=== PATIENT | female | born 1990 | race Caucasian/White ===

== ENCOUNTER → 2021-02-01 08:52 | Outpatient (BNVA) | payer OTHER, SELFPAY | PROVIDERS: Visit Provider Surgery Vascular Surgery ==

== ENCOUNTER 2021-02-15 07:52 | Outpatient (REF) | payer OTHER, SELFPAY ==
--- NOTE | ~2021-02-15 | US_ITS ---
EXAMINATION: US LOWER EXTREMITY VENOUS ULTRASOUND (REFLUX EXAM), BILATERAL CLINICAL INDICATION: Bilateral lower extremity varicose veins. COMPARISON: None. TECHNIQUE: Color-flow triplex imaging and compression Doppler was performed to evaluate both the deep and the superficial systems bilaterally. To evaluate the superficial system, the examination was performed in the upright position. Color-flow Doppler ultrasound and compression ultrasound were utilized. In addition, maneuvers were utilized to demonstrate reflux. FINDINGS: 1. DEEP VENOUS ULTRASOUND OF THE RIGHT LOWER EXTREMITY: Common Femoral Vein: Compressible, normal respiratory variation and augmented flow. Femoral Vein: Compressible, normal color-flow and augmentation. Popliteal Vein: Compressible, normal augmentation. Deep Reflux: There is greater than 1.2 seconds of reflux within the right common femoral vein. There is no evidence of a Garcia's cyst. 2. SUPERFICIAL ULTRASOUND WITH DOPPLER OF RIGHT LOWER EXTREMITY: GREAT SAPHENOUS VEIN: Saphenofemoral junction: 1.1 cm; Reflux: 1.2 seconds. Proximal thigh: 0.6 cm; Reflux: 1.5 seconds. Mid thigh: 0.5 cm; Reflux: No evidence of reflux. Above knee: 0.5 cm; Reflux: No evidence of reflux. At knee: 0.4 cm; Reflux: No evidence of reflux. Below knee: 0.3 cm; Reflux: No evidence of reflux. Mid calf: 0.3 cm; Reflux: No evidence of reflux. Ankle: 0.3 cm; Reflux: No evidence of reflux. DUPLICATED GREAT SAPHENOUS VEIN: Medial: 0.6 cm at the junction, no reflux. SMALL SAPHENOUS VEIN: Saphenopopliteal junction: 0.3 cm; No evidence of reflux. Mid calf: 0.3 cm; No evidence of reflux. Distal calf: 0.2 cm; No evidence of reflux. VEIN OF GIACOMINI: None Imaged. PERFORATORS: None Imaged. VARICOSITIES: Proximal thigh: 0.5 cm, no reflux. Mid thigh: 0.8 cm, greater than 3 seconds of reflux. Proximal calf: 0.4 cm, greater than 3.3 seconds of reflux. 3. DEEP VENOUS ULTRASOUND OF THE LEFT LOWER EXTREMITY: Common Femoral Vein: Compressible, normal respiratory variation and augmented flow. Femoral Vein: Compressible, normal color-flow and augmentation. Popliteal Vein: Compressible, normal augmentation. Deep Reflux: There is no evidence of reflux in the deep system in either the common femoral vein or the popliteal vein. There is no evidence of a Garcia's cyst. 4. SUPERFICIAL ULTRASOUND WITH DOPPLER OF LEFT LOWER EXTREMITY: GREAT SAPHENOUS VEIN: Saphenofemoral junction: 0.9 cm; Reflux: 1.7 seconds. Proximal thigh: 0.7 cm; Reflux: 1.3 seconds. Mid thigh: 0.9 cm; Reflux: 1.4 seconds. Above knee: 0.8 cm; Reflux: 2.0 seconds. At knee: 0.8 cm; Reflux: 2.6 seconds. Below knee: 0.5 cm; Reflux: 0.6 seconds. Mid calf: 0.2 cm; Reflux: No evidence of reflux. Ankle: 0.2 cm; Reflux: No evidence of reflux. DUPLICATED GREAT SAPHENOUS VEIN: Medial: 0.5 cm, greater than 0.8 seconds of reflux. SMALL SAPHENOUS VEIN: Saphenopopliteal junction: 0.3 cm; No evidence of reflux. Mid calf: 0.3 cm; No evidence of reflux. Distal calf: 0.3 cm; No evidence of reflux. VEIN OF GIACOMINI: None Imaged. PERFORATORS: Midcalf: 0.2 cm, no evidence of reflux. VARICOSITIES: Mid thigh: 0.5 cm, greater than 2 seconds of reflux. Distal thigh: 0.8 cm, greater than 1.3 seconds of reflux. Distal calf: 0.4 cm, greater than 1.4 seconds of reflux. Proximal calf: 0.8 cm, greater than 1.8 seconds of reflux. US/US venous duplex LE BI IMPRESSION: 1. Bilateral great saphenous venous insufficiency. 2. Left, duplicated medial great saphenous venous insufficiency beginning at the junction. 3. No evidence of small saphenous venous insufficiency. 4. Bilateral refluxing varicosities. 5. Deep venous insufficiency involving the right common femoral vein. 6. No evidence of DVT.
== END 2021-02-15 07:53 | disposition home or self-care (01) ==
LOC: HO.US 07:52
PROVIDERS: Visit Provider Surgery Vascular Surgery
DX: I83.893 Varicose veins of bilateral lower extremities with other complications (principal)
CPT/HCPCS: 93970

== ENCOUNTER → 2021-03-03 13:25 | Outpatient (BNVA) | payer OTHER, SELFPAY | PROVIDERS: Visit Provider Surgery Vascular Surgery ==

== ENCOUNTER → 2021-04-01 07:38 | Outpatient (BNVA) | payer OTHER, SELFPAY | PROVIDERS: Visit Provider Surgery Vascular Surgery | DX: I83.12 Varicose veins of left lower extremity with inflammation (principal) | CPT/HCPCS: 36475 ==

== ENCOUNTER 2021-04-04 10:24 | Outpatient (REF) | payer OTHER, SELFPAY ==
--- NOTE | ~2021-04-04 | US_ITS ---
EXAMINATION: US VENOUS ULTRASOUND WITH DOPPLER LOWER EXTREMITY, LEFT CLINICAL INFORMATION: Left leg pain. Rule out DVT. COMPARISON: 02/15/2021 TECHNIQUE: Ultrasound of the deep veins is performed from the hip to the calf with compression sonography and color and pulse Doppler assessment. Spectral analysis with color-flow imaging is performed. FINDINGS: There is normal venous compression and respiratory variation and augmented flow. The visualized common femoral vein, superficial femoral vein, profunda femoral vein, popliteal vein, and the trifurcation region shows no evidence of deep venous thrombosis. There is no significant popliteal fossa cyst. There is thrombus seen within the greater saphenous vein. This corresponds with the ablation. The greater saphenous vein is closed with occlusion extending 0.19 cm from the junction with the femoral vein. If the patient's symptoms persist, followup ultrasound in 5 days 7 days might be of value to exclude proximal propagation from a non-visualized calf vein. US/US venous duplex LE LT IMPRESSION: No DVT demonstrated in the left lower extremity. Greater saphenous vein thrombus associated with ablation, extending near to the junction of the femoral vein.
== END 2021-04-04 10:25 | disposition home or self-care (01) ==
LOC: HO.HMGCX 10:24
PROVIDERS: Visit Provider Surgery Vascular Surgery
DX: M79.605 Pain in left leg (principal)
CPT/HCPCS: 93971

== ENCOUNTER → 2021-04-12 08:57 | Outpatient (BNVA) | payer OTHER, SELFPAY | PROVIDERS: Visit Provider Surgery Vascular Surgery ==

== ENCOUNTER 2021-08-30 10:42 | Outpatient (REF) | payer OTHER, SELFPAY ==
[2021-08-30 13:24] LABS: Hematocrit 39.4 % (37.0-47.0); Hemoglobin 12.6 g/dl (12.0-16.0); Mean Corpuscular Hemoglobin 27.8 pg (27.0-33.0); Mean Platelet Volume 9.1 fL (9.4-12.3); Platelet Count 441 X10*3/uL (160-400); Red Blood Count 4.53 X10*6/uL (4.20-5.50); Red Cell Distribution Width 13.2 % (11.0-16.0)
[2021-08-30 13:53] LABS: Alanine Aminotransferase 12 U/L (0-31); Albumin Level 3.9 g/dL (3.5-5.0); Alkaline Phosphatase 75 U/L (39-117); Anion Gap 11 (12-20); Aspartate Amino Transferase 11 U/L (5-31); Bilirubin Total 0.3 mg/dL (0.0-1.0); Blood Urea Nitrogen 9 mg/dL (9-16); Calcium 9.4 mg/dL (8.4-10.2); Carbon Dioxide 26 mmol/L (22-29); Chloride 107 mmol/L (96-108); Cholesterol 232 mg/dL; Estimated Glomerular Filt Rate > 60; Glucose Fasting 104 mg/dL (60-99); HDL Cholesterol 47 mg/dL; LDL Cholesterol Calculated 140 mg/dl; Potassium 4.6 mmol/L (3.3-5.1); Sodium 139 mmol/L (135-145); Triglycerides 227 mg/dL
[2021-08-30 14:00] LABS: TSH reflex Free T4 2.76 uIU/mL (0.32-4.0)
== END 2021-08-30 10:43 | disposition home or self-care (01) ==
LOC: HO.WFDLDS 10:42
PROVIDERS: Visit Provider Hospitalist
DX: Z00.00 Encounter for general adult medical examination without abnormal findings (principal)
CPT/HCPCS: 36415; 80053; 80061; 84443; 85027

== ENCOUNTER 2022-04-11 11:15 | Outpatient (REF) | payer OTHER, SELFPAY ==
[2022-04-11 14:43] LABS: Amylase 34 U/L (28-100)
[2022-04-11 15:08] LABS: Lipase 30 U/L (8-78)
== END 2022-04-11 11:16 | disposition home or self-care (01) ==
LOC: HO.WFDLDS 11:15
PROVIDERS: Visit Provider Hospitalist
DX: R10.11 Right upper quadrant pain (principal)
CPT/HCPCS: 36415; 82150; 83690

== ENCOUNTER 2022-05-09 09:47 | Outpatient (REF) | payer OTHER, SELFPAY ==
--- NOTE | ~2022-05-09 | US_ITS ---
EXAMINATION: US ABDOMEN LIMITED CLINICAL INFORMATION: Right upper quadrant pain. COMPARISON: None TECHNIQUE: Real-time imaging of the right upper quadrant abdominal viscera. FINDINGS: PANCREAS: Visualized portions unremarkable. LIVER: Unremarkable. GALLBLADDER: Decompressed containing gallstones measuring up to 3.2 cm. No significant mural thickening or pericholecystic fluid. COMMON BILE DUCT: Normal in caliber measuring 0.4 cm in diameter. RIGHT KIDNEY: 12.2 cm. Unremarkable. FREE FLUID: None. US/US abdomen limited IMPRESSION: Cholelithiasis without evidence for acute cholecystitis.
== END 2022-05-09 09:48 | disposition home or self-care (01) ==
LOC: HO.HMGCX 09:47
PROVIDERS: PCP Hospitalist; Visit Provider Hospitalist
DX: R10.11 Right upper quadrant pain (principal)
CPT/HCPCS: 76705

== ENCOUNTER 2023-07-23 13:08 | Outpatient (AMB) | payer OTHER, SELFPAY ==
--- NOTE | 2023-07-23 13:09 | A.OFFPC_ITS ---
Vital Signs 07/23/23 13:10 Height 5 ft 6 in Weight 205 lb 6 oz BMI 33.1 BP 132/80 Blood Pressure Location Rt brachial Position Sitting Respiration 13 Pulse 88 Pulse Source Pulse Oximeter Temp 97.3 F Temp Source Temporal Artery Scan Pulse Oximetry (%) 96 Oxygen Delivery Method Room Air Intake Visit Reasons: Trans. from -Physical Exam Locate Technician Required: No Accompanied by: Self / Same As Patient Allergies No Known Allergies Allergy (Verified 07/23/23 13:41) Medication List - Last Reconciled 07/23/23 by Pb Woods CNP drospirenone-ethinyl estradiol 3-0.02 mg 1 tab PO DAILY fluvoxamine 25 mg PO BEDTIME semaglutide (Ozempic) 2 mg subcut QWEEK Tobacco use date assessed: 07/23/23 Dental Screening Dental Screen Date: 07/23/23 Did you have a dental visit in the last 12 months?: Yes Did you have a dental problem in the last 6 months where you did not have access to dental care?: No Was dental information given to patient?: Patient has dentist HPI HPI Comments History of Present Illness Details 32-year-old female presents for transfer of care Her former PCP is who has no longer with the practice. Her last office visit was on 07/27/2022. Her last physical exam was on 08/30/2021 She has history of hyperlipidemia, varicose vein of bilateral lower extremity, anxiety, and depression She is on ocp, fluvoxamine, and ozempic. She admits to taking her medications as prescribed without adverse reaction She notes that she is followed by two therapists weekly and a psychiatrist every 6-8 weeks She reports controlled anxiety and depression symptoms on current treatment regimen She notes that last summer, she was informed by a therapist that she may have ADHD. She was evaluated by a PMHNP who prescribed Adderall ER 10mg which she took for 4 days and stopped taking the medication due to palpitations, adrenaline luis, and flushed face. She notes that she struggled throughout school and found math challenging. She admits to not being able to focus/concentrate for her entire life. She states that she is impulsive due to outburst of anger, reckless spending, and poor diet choices. She notes that she has been able to control her anger She denies hyperactivity She notes that she exercises at the gym twice weekly and has generally been maintaining a healthy diet She has been going to [facility] [place] and has been taking Ozempic since February 2023. She found the medication effective and has lost 42 lb since starting the medication She is followed by [facility] SENIOR OFFIC[facility] Medical History (Updated 07/23/23 @ 14:10 by Pb Woods CNP) No pertinent past medical history Surgical History Status post endovenous radiofrequency ablation (RFA) of saphenous vein (04/01/21) Family History Mother No problems noted. Other Mental health disorder Social History Housing: Apartment Alcohol intake: never Patient Tobacco Use Status: Never used Tobacco e-Cigarette/Vaping Use: Never Used Second Hand Smoke Exposure: No service: No Current occupational status: employed Current occupation: Therapist Current occupational exposures/hazards: No Cognitive needs: No Hearing needs: No Vision needs: Yes (glasses) Questionnaire PHQ-9 Over the last 2 weeks, how often have you been bothered by any of the following problems? 1. Little interest or pleasure in doing things: several days 2. Feeling down, depressed, or hopeless: several days 3. Trouble falling or staying asleep, or sleeping too much: nearly every day 4. Feeling tired or having little energy: more than half the days 5. Poor appetite or overeating: several days 6. Feeling bad about yourself - or that you are a failure or have let yourself or your family down: not at all 7. Trouble concentrating on things, such as reading the newspaper or watching television: nearly every day 8. Moving or speaking so slowly that other people could have noticed. Or the opposite - being so fidgety or restless that you have been moving around a lot more than usual: not at all 9. Thoughts that you would be better off or of hurting yourself in some way: not at all Total score: 11 Depression Screening Interpretation: Positive Depression Screening Follow-up: Existing condition and In treatment Depression Screening Done: Yes 09388 - PHQ-9 Billing: Yes Source: Developed by Drs. Leonel Miranda, Leah Mcneil, Andrea Stephen and colleagues, with an educational eileen from [employer]. Thrive Questionnaire Date Thrive assessed: 07/23/23 I am a: Patient What is your living situation today?: I have a steady place to live Within the past 12 months, did the food you bought not last and you didn't have the money to get more?: Never true Within the past 12 months, did you worry whether your food would run out before you got money to buy more?: Never true Do you have trouble paying for medicines?: No Do you have trouble getting transportation to medical appointments?: No Do you have trouble paying your heating and electricity bill?: No Do you have trouble taking care of your child, family member or friend?: No Do you have trouble with day-to-day activities such as bathing, preparing meals, shopping, managing finances, etc.?: No Are you currently unemployed and looking for a job?: No Are you interested in more education?: No Please select the resources that you would like help with: None Currently or been in a relationship where the following occur: no concerns reported THRIVE Score: 0 AUDIT C Alcohol Use Questionnaire (AUDIT-C) 1. How often do you have a drink containing alcohol?: Never 3. How often do you have six or more drinks on one occasion?: Never Total Score: 0 BILLIE-7 AMB Questionnaire BILLIE-7 Date BILLIE - 7 assessed: 07/23/23 Feeling nervous, anxious, or on edge: 1 = Several days Not being able to stop or control worryin = Not at all Worrying too much about different things: 0 = Not at all Trouble relaxin = Not at all Being so restless that it is hard to sit still: 2 = More than half the days Becoming easily annoyed or irritable: 1 = Several days Feeling afraid as if something awful might happen: 0 = Not at all Total BILLIE-7 score (0-4 normal; 5-9 mild; 10-14 moderate; 15-21 severe): 4 Source: Developed by Drs. Leonel Miranda, Leah Mcneil, Andrea uribe nd colleagues, with an educational eileen from [employer]. BILLIE-7 Assessment Billing BILLIE-7 Assessment Tool: BILLIE-7 Assessment 50362 Review of Systems Const Details: Const Denies chills, Denies fatigue, Denies fever(s), Denies headache(s) and Denies weakness ENT Denies dizziness and Denies headache(s) Card Denies chest pain, Denies lightheadedness, Denies dyspnea and Denies other (Palpitations) Resp Denies cough, Denies dyspnea, Denies wheezing and Denies other ( shortness of breath) GI Denies abdominal pain, Denies melena, Denies hematochezia, Denies change in bowel habits, Denies dyspepsia and Denies nausea Denies hematuria and Denies dysuria Musc Denies abnormal gait, Denies myalgias, Denies arthralgias, Denies numbness and Denies tingling Skin/Breast Denies rash, Denies unusual bruising and Denies wounds Neuro Denies abnormal gait, Denies dizziness, Denies headache(s), Denies memory loss, Denies numbness, Denies Sensory deficit (Neuro), Denies tingling and Denies weakness Psych Denies anxiety, Denies depression, Denies memory loss Endo Denies cold intolerance, Denies fatigue, Denies heat intolerance, Denies polydipsia and Denies polyuria Aller/Immun Denies wheezing Physical exam (Primary Care) Tobacco/Smoking Status: Tobacco use Status Tobacco use date assessed 08/30/21 07/27/22 09:47 Patient Tobacco Use Status Never used Tobacco 07/27/22 09:47 e-Cigarette/Vaping Use Never Used 07/27/22 09:47 Depression Screening Interpretation: Positive Depression Screening Follow-up: Existing condition and In treatment Thrive Assessment: Date of Thrive Assessment Date Thrive assessed 08/30/21 07/27/22 09:47 Currently or been in a relationship where the following occur: no concerns reported Const Other: General: no acute distress and well developed Nutritional Appearance: well nourished Orientation/consciousness: patient oriented x3 HENMT Head: Yes normocephalic and Yes atraumatic Eyes General: appearance normal, both eyes and all related structures Pupils: Equal, round and reactive pupils present EOM: EOMs intact bilaterally Resp Effort & Inspection: normal respiratory effort Auscultation: clear to auscultation bilaterally Cardio Rate: regular rate Rhythm: regular rhythm Heart sounds: S1 normal heart sound present, S2 normal heart sound present, no gallops, no murmurs and no rubs GI Palpation (GI): No Abdominal aortic bruit present, Soft to palpation, nontender, No hepatosplenomegaly present and No Rebound tenderness present Auscultation: normal bowel sounds General: Yes no CVA tenderness Back/Spine/Pelvis Back: no CVA tenderness Cervical Spine: cervical ROM normal and No Cervical spine tenderness Thoracic/Lumbar Spine: thoraco-lumbar ROM normal, No pain with thoraco-lumbar ROM, No thoracic spinal tenderness and No lumbar spinal tenderness Extrem General: Yes normal to inspection, No edema and No calf tenderness Skin General: warm and dry. Normal skin color. Normal skin turgor Neuro General: patient oriented x3, gait normal and no focal neuro deficit Cranial nerves: Yes Equal, round and reactive pupils present Cognition (Neuro): normal cognition Gait exam (Neuro): Normal gait present Sensory Exam: No Sensory deficit (Neuro) Psych Appearance: grossly normal Affect: normal affect Attitude: cooperative Thought process: Normal thought process present Assessment and Plan Assessment & Plan (1) Anxiety and depression: Code(s): F41.9 - Anxiety disorder, unspecified; F32.A - Depression, unspecified Plan: PHQ-9 and BILLIE-7 scores revealed moderate depression and mild anxiety respectively Continue current treatment regimen Routine exercise encouraged Follow-up with therapists and psychiatrist as planned Return in 1 month for an extended physical exam and review of recent labs Return sooner with symptoms or concerns Verbalized understanding and agreed with treatment plan (2) Obesity (BMI 30-39.9): Code(s): E66.9 - Obesity, unspecified Plan: She is on Ozempic 2 mg every week She has lost 42 lb since she started taking the medication 5 months ago Continue current treatment regimen Healthy diet and routine exercise encouraged Follow-up with symptoms or concerns Verbalized understanding and agreed with treatment plan (3) Laboratory tests ordered as part of a complete physical exam (CPE): Code(s): Z00.00 - Encounter for general adult medical examination without abnormal findings Plan: Fasting labs ordered in preparation of a complete physical exam. Advised to fast for at least 10 hours before getting labs drawn. May drink water Verbalized understanding and agreed with treatment plan. Orders: Orders TSH reflex Free T4 Today Z00.00 - Encounter for general adult medical examination without abnormal findings UA CC w/rflx Micro + Cult Today Z00.00 - Encounter for general adult medical examination without abnormal findings Complete Blood Count Auto Diff Today Z00.00 - Encounter for general adult medical examination without abnormal findings Comprehensive [place]. Panel Fast Today Z00.00 - Encounter for general adult medical examination without abnormal findings Lipid Panel Today Z00.00 - Encounter for general adult medical examination wit hout abnormal findings Coding Level of Care Code Est Pt Level 4 (06710) Diagnoses Anxiety and depression F41.9; F32.A Obesity (BMI 30-39.9) E66.9 Laboratory tests ordered as part of a complete physical exam (CPE) Z00.00 Additional Codes BILLIE-7 Assessment Billing - BILLIE-7 Assessment Tool: BILLIE-7 Assessment [id number] ([id number])
[2023-07-23 13:10] VITALS: BP 132/80; PULSE 88; RESP 13; TEMP 36.3; O2SAT 96; BMI 33.1
== END 2023-07-23 14:06 | disposition home or self-care (01) ==
PROVIDERS: Visit Provider Nurse Practitioner Family
DX: F41.9 Anxiety disorder, unspecified (principal); F32.A Depression, unspecified; E66.9 Obesity, unspecified; Z68.33 Body mass index [BMI] 33.0-33.9, adult
CPT/HCPCS: 99214

== ENCOUNTER 2024-09-15 08:01 | Outpatient (AMB) | payer OTHER, SELFPAY ==
--- NOTE | 2024-09-15 08:03 | A.OFFPC_ITS ---
Vital Signs 09/15/24 08:10 Height 5 ft 6 in Weight 203 lb 8 oz BMI 32.8 BP 123/69 Blood Pressure Location Rt brachial Position Sitting Respiration 16 Pulse 91 Pulse Source Pulse Oximeter Temp 97.7 F Temp Source Oral Pulse Oximetry (%) 98 Oxygen Delivery Method Room Air Intake Visit Reasons: ANNUAL PE Intake Note: patient here for CPE Flight Nurse Required: No Is last menstrual period known: No (nuva ring) Post menopausal: No Patient : No Allergies No Known Allergies Allergy (Verified 09/15/24 08:13) Medication List - Last Reconciled 09/15/24 by Pb Woods CNP dextroamphetamine-amphetamine 10 mg ER (Adderall XR) 10 mg PO DAILY drospirenone-ethinyl estradiol 3-0.02 mg 1 tab PO DAILY duloxetine (Cymbalta) 60 mg PO DAILY tirzepatide 10 mg subcut QWEEK Tobacco use date assessed: 09/15/24 Dental Screening Dental Screen Date: 09/15/24 Did you have a dental visit in the last 12 months?: Yes Did you have a dental problem in the last 6 months where you did not have access to dental care?: No Was dental information given to patient?: Patient has dentist HPI HPI Comments History of Present Illness Details 33-year-old female presents for an exten ded physical exam. Acute issue(s) - Obesity: She is on tirzepatide 10 mg subQ weekly via online prescriber. It was initially prescribed by a [facility] she went to. Her weight management goal is 175 lb. - Anxiety and depression: She notes cont rolled anxiety and depressive symptoms. She is on duloxetine 60 mg daily. She is followed by psychiatry once monthly or every other month via telehealth. She is followed by a therapist weekly via telehealth - ADHD: She notes controlled ADHD symtpo ms. She is on Adderall 10 mg daily. She denies sleep disturbance, loss of appetite, and weight loss - Chronic sinus migraines since childhoo d. Occurs once monthly and last 2-3 days. She has an appointment with [facility] Next week. She will sign a relea se for her PCP to obtain ENT record. 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 Does not vape. Does not dr ink alcohol. Denies recreational drug use - Has been making healthy dietary choice s. Active but does not exercise. Generally sleep well Health maintenance - Last eye exam was 2 years ago. She has an appointment scheduled for an eye exam next month. She will sign a release for her PCP to obtain her ophthalmology record - Last dental visit was in 06/2024. She s ees her dentist every 6 months. - Last tetanus vaccine was more than 10 years ago; received Tdap vaccine today - Has not been vaccinated for the flu ; declines vaccination - Last pap smear test was with [facility] senior instrumentation engineer in 2023. Record not available Specialists [facility], [place], [place], via telehealth Therapist via telehealth [facility] Medical History (Updated 09/15/24 @ 08:35 by Pb Woods CNP) No pertinent past medical history Surgical History Status post endovenous radiofrequency ablation (RFA) of saphenous vein (04/01/21) Family History Mother No problems noted. Other Mental health disorder Social History Housing: Apartment Alcohol intake: never Patient Tobacco Use Status: Never used Tobacco e-Cigarette/Vaping Use: Never Used Second Hand Smoke Exposure: No service: No Current occupational status: employed Current occupation: Therapist Current occupational exposures/hazards: No Cognitive needs: No Hearing needs: No Vision needs: Yes (glasses) Questionnaire PHQ-9 Over the last 2 weeks, how often have you been bothered by any of the following problems? 1. Little interest or pleasure in doing things: not at all 2. Feeling down, depressed, or hopeless: not at all 3. Trouble falling or staying asleep, or sleeping too much: several days 4. Feeling tired or having little energy: several days 5. Poor appetite or overeating: several days 6. Feeling bad about yourself - or that you are a failure or have let yourself or your family down: not at all 7. Trouble concentrating on things, such as reading the newspaper or watching television: not at all 8. Moving or speaking so slowly that other people could have noticed. Or the opposite - being so fidgety or restless that you have been moving around a lot more than usual: not at all 9. Thoughts that you would be better off or of hurting yourself in some way: not at all Total score: 3 Depression Screening Interpretation: Negative Depression Screening Done: Yes 66861 - PHQ-9 Billing: Yes Source: Developed by Drs. Leonel Miranda, Leah Mcneil, Andrea Stephen and colleagues, with an educational eileen from [employer]. Thrive Questionnaire Date Thrive assessed: 09/15/24 I am a: Patient What is your living situation today?: I have a steady place to live Within the past 12 months, did the food you bought not last and you didn't have the money to get more?: Never true Within the past 12 months, did you worry whether your food would run out before you got money to buy more?: Never true Do you have trouble paying for medicines?: No Do you have trouble getting transportation to medical appointments?: No Do you have trouble paying your heating and electricity bill?: No Do you have trouble taking care of your child, family member or friend?: No Do you have trouble with day-to-day activities such as bathing, preparing meals, shopping, managing finances, etc.?: No Are you currently unemployed and looking for a job?: No Are you interested in more education?: No Please select the resources that you would like help with: None Currently or been in a relationship where the following occur: No concerns reported THRIVE Score: 0 AUDIT C Alcohol Use Questionnaire (AUDIT-C) 1. How often do you have a drink containing alcohol?: Never Total Score: 0 Score Reviewed/Action Taken: Yes BILLIE-7 AMB Questionnaire BILLIE-7 Date BILLIE - 7 assessed: 09/15/24 Feeling nervous, anxious, or on edge: 1 = Several days Not being able to stop or control worryin = Not at all Worrying too much about different things: 0 = Not at all Trouble relaxin = Not at all Being so restless that it is hard to sit still: 0 = Not at all Becoming easily annoyed or irritable: 0 = Not at all Feeling afraid as if something awful might happen: 0 = Not at all Total BILLIE-7 score (0-4 normal; 5-9 mild; 10-14 moderate; 15-21 severe): 1 Source: Developed by Drs. Leonel Miranda, Leah Mcneil, Andrea Stephen and colleagues, with an educational eileen from [employer]. BILLIE-7 Assessment Billing BILLIE-7 Assessment Tool: BILLIE-7 Assessment 45802 Review of Systems Const Details: Denies chills, Denies fatigue, Denies fever(s), Denies headache(s) and Denies weakness HEENT Denies change in vision, Denies dizziness, Denies headache(s), Denies hearing loss, Denies nasal congestion, Denies sinus pain, Denies sinus pressure and Denies sore throat Card Denies chest pain, Denies lightheadedness, Denies dyspnea and Denies other (palpitations) Resp Denies cough, Denies dyspnea and Denies wheezing GI Denies abdominal pain, Denies melena, Denies hematochezia, Denies change in bowel habits, Denies dyspepsia and Denies nausea Denies hematuria and Denies dysuria Musc Denies abnormal gait, Denies myalgias, Denies arthralgias, Denies numbness and Denies tingling Skin/Breast Denies rash, Denies unusual bruising and Denies wounds Neuro Denies abnormal gait, Denies dizziness, Denies headache(s), Denies memory loss, Denies numbness, Denies Sensory deficit (Neuro), Denies tingling and Denies weakness Psych Denies anxiety, Denies depression and Denies memory loss Endo Denies cold intolerance, Denies fatigue, Denies heat intolerance, Denies polydipsia and Denies polyuria Jamaal/Lymph Denies easy bleeding and Denies easy bruising Aller/Immun Denies wheezing Physical exam (Primary Care) Vital Signs: Last Vital Signs Temp 97.7 F 09/15/24 08:10 Pulse 91 09/15/24 08:10 Resp 16 09/15/24 08:10 BP 123/69 09/15/24 08:10 Pulse Ox 98 09/15/24 08:10 Oxygen Delivery Method Room Air 09/15/24 08:10 BMI result Body Mass Index 32.8 Tobacco/Smoking Status: Tobacco use Status Tobacco use date assessed 09/15/24 09/15/24 08:10 Patient Tobacco Use Status Never used Tobacco 09/15/24 08:06 e-Cigarette/Vaping Use Never Used 09/15/24 08:06 PHQ-9: PHQ-9 Score PHQ-9: Total score 3 09/15/24 08:10 Depression Screening Interpretation: Negative Thrive Assessment: Date of Thrive Assessment Date Thrive assessed 09/15/24 09/15/24 08:06 Currently or been in a relationship where the following occur: No concerns reported Const Other: General: no acute distress, well developed, alert and awake Nutritional Appearance: well nourished Orientation/consciousness: patient oriented x3 HENMT Head: Yes normocephalic and Yes atraumatic Ears: hearing grossly normal bilaterally and TM's normal bilaterally General nose exam: Normal external nose present and Normal nares present Mouth: Normal oral and palatal mucosa present and moist mucous membranes Teeth and gingiva: dentition normal Throat: Yes oropharynx normal Eyes Pupils: Equal, round and reactive pupils present and Pupil accommodation reflex normal EOM: EOMs intact bilaterally Neck Neck: Yes normal visual inspection, Yes no lymphadenopathy and Yes trachea midline Thyroid: Thyroid normal Carotids: no bruits Lymphatic: no lymphadenopathy noted Chest Chest palpation & inspection: normal inspection of the chest Resp Effort & Inspection: normal respiratory effort Auscultation: clear to auscultation bilaterally Cardio Rate: regular rate Rhythm: regular rhythm Heart sounds: S1 normal heart sound present, S2 normal heart sound present, no gallops, no murmurs and no rubs Bruits: no abdominal aortic bruits and no carotid bruits GI Palpation (GI): No Abdominal aortic bruit present, Soft to palpation, nontender, No hepatosplenomegaly present and No Rebound tenderness present Auscultation: normal bowel sounds General: Yes no CVA tenderness Back/Spine/Pelvis Back: no CVA tenderness Cervical Spine: cervical ROM normal and No Cervical spine tenderness Thoracic/Lumbar Spine: thoraco-lumbar ROM normal, No pain with thoraco-lumbar ROM, No thoracic spinal tenderness and No lumbar spinal tenderness Skin General: warm and dry. Normal skin color. Normal skin turgor Lesions: no lesions Rashes: no rashes Trauma: no lacerations or abrasions Wounds: no wounds Nails: normal Neuro General: patient oriented x3, gait normal and CN's II-XI intact bilaterally Cranial nerves: Yes Equal, round and reactive pupils present Cognition (Neuro): normal cognition Gait exam (Neuro): Normal gait present Motor exam (neuro): 5/5 motor strength present throughout Sensory Exam: No Sensory deficit (Neuro) Deep tendon reflexes (DTR's): Right patellar reflex intensity grade: 2+ and Left patellar reflex intensity grade: 2+ Extrem General: Yes normal to inspection, No edema and No calf tenderness Psych Appearance: grossly normal Affect: normal affect Attitude: cooperative Thought process: Normal thought process present Immunizations Boostrix Tdap 2.5 Lf unit-8 mcg-5 Lf/0.5 mL intramuscular syringe Performing Provider: Pb Woods CNP Performing Location: [facility] [place] [facility] Administered by: Cruzito Sharma RN on 09/15/24 08:40 Dose Route Admin Location Dispensed Lot Number Expiration Date FORMERLY NAMED [facility] Medicare Sales Executive 0.5 mL IM Left Deltoid 0.5 mL [id number] 06/13/26 15366-696-90 [employer] VIS Given Date VIS Provided VIS Publication Date 09/15/24 Single Vaccine 21 Eligibility Eligibility Date Funding Source Not [facility] Eligible 09/15/24 Private Coding Level of Care Code Est Pt Prev Care 18-39y(88278) Diagnoses Normal physical exam Z00.00 Anxiety and depression F41.9; F32.A ADHD F90.9 Obesity (BMI 30-39.9) E66.9 Laboratory tests ordered as part of a complete physical exam (CPE) Z00.00 Additional Codes BILLIE-7 Assessment Billing - BILLIE-7 Assessment Tool: BILLIE-7 Assessment 27315 ([id number]) PHQ-9 - 82595 - PHQ-9 Billing: Yes ([id number]) Assessment & Plan Assessment & Plan (1) Normal physical exam: Code(s): Z00.00 - Encounter for general adult medical examination without abnormal findings Category: Medical Plan: No significant functional limitation noted. Continue current treatment regimen. Perform lab work and follow-up for telehealth visit in 2-3 weeks for labs review. Return sooner with symptoms or concerns. Verbalized understanding and agreed with treatment plan. (2) Anxiety and depression: Code(s): F41.9 - Anxiety disorder, unspecified; F32.A - Depression, unspecified Category: Medical Plan: Controlled anxiety, depressive, and ADHD symptoms. PHQ-9 and BILLIE-7 scores are normal. Continue current treatment regimen. Routine exercise encouraged. Follow-up with therapist and psychiatrist as planned. Verbalized understanding and agreed with treatment plan. (3) ADHD: Code(s): F90.9 - Attention-deficit hyperactivity disorder, unspecified type Category: Medical Plan: Plan as above. (4) Obesity (BMI 30-39.9): Code(s): E66.9 - Obesity, unspecified Category: Medical Plan: She currently weighs 203 lb, BMI is 32.8. She has been taking tirzepatide 10 mg subQ weekly with significant improvement of her weight. Her weight management goal is 175 lb. She generally makes healthy dietary choices. However, she is active but does not exercise. Healthy diet and routine exercise encouraged. Continue current treatment regimen. Follow-up as needed. Verbalized understanding and agreed with the plan. (5) Laboratory tests ordered as part of a complete physical exam (CPE): Code(s): Z00.00 - Encounter for general adult medical examination without abnormal findings Category: Medical Plan: Fasting labs ordered as part of a complete physical exam. Advised to fast for at least 10 hours before getting labs drawn. May drink water Verbalized understanding and agreed with treatment plan. Orders: Orders Comprehensive [place]. Panel Fast Today Z00.00 - Encounter for general adult medical examination without abnormal findings Complete Blood Count Auto Diff Today Z00.00 - Encounter for general adult medical examination without abnormal findings Lipid Panel Today Z00.00 - Encounter for general adult medical examination without abnormal findings Microalbumin, Random (w Creat) Today Z00.00 - Encounter for general adult medical examination without abnormal findings TSH reflex Free T4 Today Z00.00 - Encounter for general adult medical examination without abnormal findings UA CC w/rflx Micro + Cult Today Z00.00 - Encounter for general adult medical examination without abnormal findings Vitamin D 25-OH Total Today Z00.00 - Encounter for general adult medical examination without abnormal findings
[2024-09-15 08:10] VITALS: BP 123/69; PULSE 91; RESP 16; TEMP 36.5; O2SAT 98; BMI 32.8
== END 2024-09-15 08:47 | disposition home or self-care (01) ==
LOC: HO.HMCFM 08:02
PROVIDERS: PCP Nurse Practitioner Family; Visit Provider Nurse Practitioner Family
DX: Z00.00 Encounter for general adult medical examination without abnormal findings (principal); E66.9 Obesity, unspecified; Z68.32 Body mass index [BMI] 32.0-32.9, adult; F41.9 Anxiety disorder, unspecified; F32.A Depression, unspecified; F90.9 Attention-deficit hyperactivity disorder, unspecified type; Z23 Encounter for immunization

== ENCOUNTER → 2024-09-15 08:01 | Outpatient (BNVA) | payer OTHER, SELFPAY | PROVIDERS: PCP Nurse Practitioner Family; Visit Provider Nurse Practitioner Family | DX: Z00.00 Encounter for general adult medical examination without abnormal findings (principal); Z23 Encounter for immunization; F41.9 Anxiety disorder, unspecified; F32.A Depression, unspecified; F90.9 Attention-deficit hyperactivity disorder, unspecified type; E66.9 Obesity, unspecified; Z68.32 Body mass index [BMI] 32.0-32.9, adult | CPT/HCPCS: 90471; 90715; 96127 ==

== ENCOUNTER 2024-09-15 08:48 | Outpatient (REF) | payer OTHER, SELFPAY ==
[2024-09-15 11:36] LABS: MANUAL DIFF FLAG NO
[2024-09-15 11:39] LABS: Basophils Absolute Auto 0.1 X10*3/uL (0.0-0.2); Eosinophils Absolute Auto 0.3 X10*3/uL (0.0-0.4); Eosinophils Percent Auto 3.5 % (0-4); Hematocrit 43.3 % (37.0-47.0); Imm Gran Abs Auto 0.02 X10*3/uL (0.00-0.03); Imm Gran Pct Auto 0.3 % (0.0-0.4); Lymphocytes Absolute Auto 2.5 X10*3/uL (1.2-4.9); Mean Corpuscular HGB Conc 32.3 g/dl (31.0-35.0); Mean Corpuscular Hemoglobin 28.7 pg (27.0-33.0); Mean Corpuscular Volume 88.9 fL (80.0-98.0); Mean Platelet Volume 9.1 fL (9.4-12.3); Monocytes Absolute Auto 0.5 X10*3/uL (0.1-1.2); Monocytes Percent Auto 6.8 % (2-11); Neutrophils Absolute Auto 4.5 x10*3/uL (2.0-8.3); Neutrophils Percent Auto 57.4 % (45-73); Platelet Count 429 X10*3/uL (160-400); Red Blood Count 4.87 X10*6/uL (4.20-5.50); Red Cell Distribution Width 11.9 % (11.0-16.0); White Blood Count 7.9 X10*3/uL (4.8-10.8)
[2024-09-15 11:45] LABS: Appearance Urine Turbid; Color Urine Yellow; Glucose Urine UA Negative (Negative); Leukocyte Esterase Urine Negative (Negative); Nitrite Urine Negative (Negative); Specific Gravity - Urine >= 1.030 (1.005-1.025); UMIC TRIGGER UACC YES; Urine Blood Trace (Negative); Urine Ketones Trace mg/dL (Negative); Urine Protein Negative (Neg-Trace)
[2024-09-15 11:51] LABS: Bacteria Urine 1+ (None Seen); WBC Urine 0-5 /HPF (0-5)
[2024-09-15 12:05] LABS: Alanine Aminotransferase 6 U/L (0-31); Anion Gap 12 (12-20); Aspartate Amino Transferase 20 U/L (5-31); Bilirubin Total 0.4 mg/dL (0.0-1.0); Blood Urea Nitrogen 10 mg/dL (9-16); Calcium 9.4 mg/dL (8.4-10.2); Carbon Dioxide 26 mmol/L (22-29); Chloride 106 mmol/L (96-108); Cholesterol 228 mg/dL (<200); Estimated Glomerular Filt Rate > 60; Glucose Fasting 88 mg/dL (60-99); HDL Cholesterol 53 mg/dL (>40); LDL Cholesterol Calculated 143 mg/dL (<100); Potassium 4.1 mmol/L (3.3-5.1); Sodium 140 mmol/L (135-145); Total Protein 7.5 g/dL (6.5-8.0); Triglycerides 160 mg/dL (<150)
[2024-09-15 12:19] LABS: Creatinine Urine 296.24 mg/dL; Microalbum/Creatinine Ratio Ur 7.4 ug/mg cr (<30)
[2024-09-15 12:29] LABS: TSH reflex Free T4 2.29 uIU/mL (0.32-4.0); Vitamin D 25-OH Total 75.1 ng/mL (>30)
[2024-09-15 12:32] LABS: Alkaline Phosphatase 69 U/L (39-117)
== END 2024-09-15 08:49 | disposition home or self-care (01) ==
LOC: HO.WFDLDS 08:48
PROVIDERS: Visit Provider Nurse Practitioner Family
DX: Z00.00 Encounter for general adult medical examination without abnormal findings (principal)
CPT/HCPCS: 36415; 80053; 80061; 81001; 82043; 82306; 82570; 84443; 85025

== ENCOUNTER 2024-12-19 16:02 | Outpatient (AMB) | payer OTHER, SELFPAY ==
--- NOTE | 2024-12-19 15:56 | A.OFFPC_ITS ---
Intake Visit Reasons: Labs results Intake Note: Piat presents for a [facility] lab review. Allergies No Known Allergies Allergy (Verified 12/19/24 15:57) Tobacco use date assessed: 12/19/24 Dental Screening Dental Screen Date: 12/19/24 Did you have a dental visit in the last 12 months?: Yes Did you have a dental problem in the last 6 months where you did not have access to dental care?: No Was dental information given to patient?: Patient has dentist HPI HPI Comments History of Present Illness Details 34-year-old female presents for [facility] for review of recent labs results. She notes that she generally eats unhealthy. She is active but does not exercise. She is unsure about family history of hyperlipidemia. She offers no complaints and denies acute symptoms at this time. [facility] Medical History No pertinent past medical history Surgical History Status post endovenous radiofrequency ablation (RFA) of saphenous vein (04/01/21) Family History Mother No problems noted. Other Mental health disorder Social History (Updated 12/19/24 @ 16:00 by Nalini Michel MA) Housing: Apartment Alcohol intake: never Patient Tobacco Use Status: Never used Tobacco e-Cigarette/Vaping Use: Never Used Second Hand Smoke Exposure: No Use of substances other than those prescribed or required for medical reasons: No service: No Current occupational status: employed Current occupation: Therapist Current occupational exposures/hazards: No Cognitive needs: No Hearing needs: No Vision needs: Yes (glasses) Questionnaire Thrive Questionnaire Date Thrive assessed: 09/15/24 I am a: Patient What is your living situation today?: I have a steady place to live Within the past 12 months, did the food you bought not last and you didn't have the money to get more?: Never true Within the past 12 months, did you worry whether your food would run out before you got money to buy more?: Never true Do you have trouble paying for medicines?: No Do you have trouble getting transportation to medical appointments?: No Do you have trouble paying your heating and electricity bill?: No Do you have trouble taking care of your child, family member or friend?: No Do you have trouble with day-to-day activities such as bathing, preparing meals, shopping, managing finances, etc.?: No Are you currently unemployed and looking for a job?: No Are you interested in more education?: No Please select the resources that you would like help with: None Currently or been in a relationship where the following occur: No concerns reported THRIVE Score: 0 BILLIE-7 AMB Questionnaire BILLIE-7 Date BILLIE - 7 assessed: 09/15/24 Source: Developed by Drs. Leonel Miranda, Leah Mcneil, Andrea Stephen and colleagues, with an educational eileen from [employer]. Review of Systems Const Details: Denies chills, Denies fatigue, Denies fever(s), Denies headache(s) and Denies weakness Cardiac Denies chest pain, Denies claudication, Denies leg edema, Denies lightheadedness, Denies palpitations, Denies dyspnea, Denies dyspnea on exertion, Denies orthopnea and Denies other (Loss of consciousness) Resp Denies cough, Denies excessive phlegm production, Denies dyspnea, Denies dyspnea on exertion, Denies snoring and Denies wheezing Physical exam (Primary Care) Tobacco/Smoking Status: Tobacco use Status Tobacco use date assessed 12/19/24 12/19/24 16:01 Patient Tobacco Use Status Never used Tobacco 12/19/24 16:01 e-Cigarette/Vaping Use Never Used 12/19/24 16:01 Thrive Assessment: Date of Thrive Assessment Date Thrive assessed 09/15/24 12/19/24 16:01 Currently or been in a relationship where the following occur: No concerns reported Telehealth Telehealth Telehealth Platform: Telephone Location of provider rendering services: practice address Location of patient: address on file Patient Identification confirmed using: Name, : Yes Telehealth method: voice only Patient verbally consented to treatment: Yes Patient verbally consented to billing insurance company: Yes Patient informed of any privacy concerns related to visit: Yes Coding Level of Care Code Tele Est Pt Level 3 (51053) Diagnoses Hyperlipidemia E78.5 Thrombocytosis D75.839 Obesity (BMI 30-39.9) E66.9 Time Spent (min) 20 Assessment & Plan Assessment & Plan (1) Hyperlipidemia: Code(s): E78.5 - Hyperlipidemia, unspecified Category: Medical Plan: Recent triglycerides, total cholesterol, and LDL levels are elevated, 160, 228, and 143 respectively. HDL level was normal. Previous triglyceride, total cholesterol, and LDL levels were 227, 232, and 140 respectively. Advised to limit foods high in saturated fat and avoid foods high in trans fat. Routine exercise encouraged. Fast for 10-12 hours, may drink water, and perform lipid panel blood work a few days before next visit. Follow-up in 2 months or sooner with symptoms or concerns. Verbalized understanding and agreed with the plan. (2) Thrombocytosis: Code(s): D75.839 - Thrombocytosis, unspecified Category: Medical Plan: Recent platelet level is slightly elevated, 429, previous level was 441. Equivocal. May be related to viral or bacterial illness or inflammation. Will recheck CBC in a few weeks. Verbalized understanding and agreed with the plan. (3) Obesity (BMI 30-39.9): Code(s): E66.9 - Obesity, unspecified Category: Medical Plan: Her health plan recently denied tirzepatide for weight management; alternative given her both stimulants. Patient is already on Adderall and therefore can not be prescribed another stimulant for weight management. She notes that she restarted taking Ozempic weekly for weight management and pain out of pocket. She has not been making healthy lifestyle changes. Declines referral to dietitian/cattery operator or weight management at this time. Healthy diet and routine exercise encouraged. Follow-up as needed. Verbalized understanding and agreed with the plan. Orders: Orders Lipid Panel 2 Months E78.5 - Hyperlipidemia, unspecified Complete Blood Count Auto Diff 2 Months D75.839 - Thrombocytosis, unspecified
== END 2024-12-19 17:05 | disposition home or self-care (01) ==
LOC: HO.HMCFM 16:02
PROVIDERS: PCP Nurse Practitioner Family; Visit Provider Nurse Practitioner Family
DX: E78.5 Hyperlipidemia, unspecified (principal); D75.839 Thrombocytosis, unspecified; E66.9 Obesity, unspecified

== ENCOUNTER 2025-02-28 11:33 | Outpatient (REF) | payer OTHER, SELFPAY ==
--- OUTSIDE RECORDS SUMMARY | 2025-02-28 11:37 | XMS_ITS | Data Portability ---
Author Organization [place] - [facility], Allergy Address [address] [place] [address] Care Team Providers Care Manager Of Financial Name Role Phone ABDIRASHID SNELL Primary Care Provider Assessment No assessment recorded. Plan of Treatment Reminders Order Date Submit Date Provider Last Modified By Organization Details Last Modified Time Details Appointments None recorded. Lab None recorded. Referral None recorded. Procedures spirometry, including graphic record, total and timed vital capacity, expiratory flow rate measurement (s) (PROC) 2024 025 [email or web address] Not available 5 14:28:10 allergy testing, skin prick (PROC) 2024 025 [email or web address] Not available 5 16:49:23 intradermal allergy skin testing (PROC) 2024 025 [email or web address] Not available 5 16:49:23 pulse oximetry (PROC) 2024 025 [email or web address] Not available 5 16:49:24 Surgeries None recorded. Imaging None recorded. Medication Orders None recorded. Patient TargetsNo targets recorded. 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 She notes history of environmental allergies, prior nasal surgery as a child. Sounds like adenoidectomy and possible turbinate surgery. However, details are not available. Examination shows high body mass index, septal deviation to the left side impinging in the middle meatus but no evidence of prior sinus surgery. We discussed avoidance of migraine triggers, magnesium and riboflavin supplementation and possibly using a calcium channel evon for prophylaxis given her other medications. However, in the meantime I would recommend allergy skin testing and consistent use of fluticasone nasal spray dacia Not available 10/15/2024 11:41:05 01/16/2025 [id number] Nursing Documentation for Allergy Testing: Ordering Provider Dr. Pak Weight:lbs: kg: PFT Yes With Bronchodilator no approval needed to proceed with allergy testing? Yes Dr. Pak ok'd testing YesHistory of Asthma:No Asthma Meds: Last used: Asthma exacerbated by: Chance that : No Fear of needles: No Regular medications reviewed in Computer: Yes Medication allergies: Reviewed Antihistamine use: No Medications used: Food Allergies: n/a Any foods make your mouth feeling itchy: No If yes: History of severe reaction where had to go to ER? No If yes details: Type of heat in home: Forced Air Pets: Yes If yes: 4 dogs, 2 cats Smoker: Never If former smoker-how much / day for how long When quit years ago Smoking now-how much /day for how long Occupation/Social History: therapist Symptoms having: Other If other: sinus migraine Frequency Seasonally Spirometry Contraindications: Heart attack in the last 3 months: No Major surgery in last 3 months: No Detached retina(serious eye issues) in last 2 months: No Hospitilization in last month: No Proceed with PFT Yes approval needed: Yes Nursing Notes: Pt tolerated test well Yes Benadryl cream to test sites No Patient became syncopal-placed in supine position No Large reactions to MQT, reschedule IDT for a different date No Other: Written by: Anna Casarez [email or web address] Not available 01/16/2025 11:55:31 Reason for Referral None Reported. Results Created Date Observation Date Name Description Value Unit Range Abnormal Flag Note LastModifiedBy Organization Detail LastModifiedTime 01/17/20 25 reyna metry testi ng* No observ ation record ed. [email or web address] Not Available 2024 10:46:52 Result Notes None recorded. Problems Name Problem SNOMED Code Status Onset Date Resolution Date Notes Provider Name and Address Organization Details Recorded Time Migraine without aura, not refractory 453360461 Active 025 AIDEE VILLA MD [facility] [place], [place], [address], [place] - [facility] [place] 5 11:27:50 Allergic rhinitis 34482445 Active AIDEE VILLA MD 100 [facility] [place], [place], [address], [facility] - [facility] [place] 11:27:56 Obesity caused by energy imbalance 404341771 Active AIDEE VILLA MD 100 [facility] [place], [place], [address], [place] - [facility] [place] 11:28:28 Deviated nasal septum 780351258 Active AIDEE VILLA MD [address] [facility],[address], [place], [address], [facility] - [facility] 11:41:44 Perennial allergic rhinitis 696745539 Active LAMBERTO ALLEN [address] [facility],[address], [place], [address], [facility] - [facility] 10:44:37 Problem Notes None recorded. Procedures Surgical History Date Name Laterality Status Provider Name and Address Organization Details Recorded Time 01/17/20 25 Allergy Testing-Full completed LAMBERTO ALLEN [address] [facility],[address], [address], [facility] - [facility] 01/16/2025 11:55:23 10/16/19 25 JMSNasal/Sinus Endoscopy completed AIDEE PAK MD [address] [facility],[address], [address], [facility] - [facility] 10/15/2024 11:39:22 adenoid excision completed Nighat Sanders [facility] 10/15/2024 11:13:36 nasal polypectomy completed Nighat Sanders [place] - [facility] 10/15/2024 11:13:49 Imaging Results None recorded. Procedure Notes None recorded. Medical Equipment None Reported. Medications Name Sig Start Date Stop Date Status Note LastModified by Organization Details LastModified Time dextroamphe tamine-amph etamine ER 20 mg 24hr capsule,ext end release TAKE 1 CAPSULE BY MOUTH EVERY DAY active Not Available Not Available No t Available dextroamphe tamine-amph etamine ER 10 mg 24hr capsule,ext end release TAKE 1 CAPSULE BY MOUTH ONCE A DAY IN THE MORNING. 01/16 completed Not Available Not Available Not Available dextroamphe tamine-amph etamine ER 5 mg 24hr capsule,ext end release TAKE 1 CAPSULE BY MOUTH EVERY DAY 01/16 completed Not Available Not Available Not Available dextroamphe tamine-amph etamine ER 15 mg 24hr capsule,ext end release TAKE 1 CAPSULE BY MOUTH EVERY DAY 01/16 completed Not Available Not Available Not Available etonogestre l 0.12 mg-ethinyl estradiol 0.015 mg/24 hr vaginal ring INSERT 1 RING VAGINALLY DIRECTED. REMOVE AFTER 3 WEEKS & WAIT 7 DAYS BEFORE INSERTING A NEW RING 01/16 completed Not Available Not Available Not Available nitrofurant oin monohydrate /macrocryst als 100 mg capsule TAKE 1 CAPSULE BY MOUTH TWICE A DAY FOR 7 DAYS 01/16 completed Not Available Not Available Not Available duloxetine 20 mg capsule,del ayed release TAKE 1 CAPSULE BY MOUTH TWICE A DAY 01/16 completed Not Available Not Available Not Available duloxetine 60 mg capsule,del ayed release TAKE 1 CAPSULE BY MOUTH EVERY DAY active Not Available Not Available No t Available Linda (28) 3 mg-0.02 mg tablet Take 1 tablet every day by oral route. active Not Available Not Available No t Available Vitals Date Recorded Body height Body mass index (BMI) Body weight Systolic And Diastolic Provider Name and Address Organization Details Last Updated DateTime 10/15/2024 167.64 cm 33.9 kg/m2 78768.4 g 140/82 mm[Hg] Nighat Sanders [place] - [facility] 10/15/2024 11:31:25 Date Recorded Body height Body mass index (BMI) Body weight Oxygen saturation Oxygen saturation in Arterial blood by Pulse oximetry Provider Name and Address Organization Details Last Updated DateTime 01/16/2025 167.64 cm 37.1 kg/m2 881219. 25 g 96 % 96 % LAMBERTO ALLEN [address], [address], [place] - [facility] 10:39:21 Social History None recorded. Functional Status None recorded. Mental Status None recorded. Family History Nothing Reported. Medical History Condition Response Allergies/Hayfever Y Migraines Y Anxiety Y Depression Y Asthma N Gynecological HistoryNo gynecological history recorded. Obstetrics History GPAL:G 0 P 0 0 0 0 Past Encounters Encounter ID Performer Location Encounter Start Date Encounter Closed Date Diagnosis/Indication Diagnosis SNOMED-CT Code Diagnosis ICD10 Code Diagnosis IMO Codes Diagnosis Note [id number] AIDEE AHUJA MD [facility] [address] [place] [address] 10/15/2024 10:50:38 10/15/2024 11:47:36 Migraine without aura, not refractory 094936066 G43.009 189462 Suspect underlying migraine headache. Suggest reduction of cheese, chocolate, citrus fruit, cold cuts, nuts, MSG and alcohol. Suggest trial of magnesium oxide 2 to 400 mg daily and riboflavin 400 mg daily. Associatio n of migraine disorders website given, migrainedi [email or web address] g for additional informatio n. She will contact me in a few weeks with an update. Allergic rhinitis 472970 04 J30.9 8378322 Obesity ca used by energy imbalance 014965848 E66.811 E66.09 Z68.33 84376168 Deviated nasal septum 12 8949418 J34.2 763805 00630 LAMBERTO ALLEN All[facility] [address] [facility] [place] [address] 01/16/2025 10:24:25 01/16/2025 11:55:50 Perennial allergic rhinitis 488653259 J30.89 374954 Health Concerns Section Related Observation LastModified by Organization Detai ls LastModified Time None Recorded Concern Status LastModified by Organization Details LastModified Time None Recorded Advance Directives Directive None Recorded Payers Insurance Date Sequence Insurance Name Policy Number Policy Hardy Covered Member ID Hardy Member ID Guarantor Name 02/06/[address] [place] [address] [id number] Pita Hui [id number] Pita Thmary Notes Date Note Type Note Provider Name and Address Organization Details Recorded Time 10/15/2024 text/html ROS as noted in the HPI Hx of AR and prior sinus procedure. Patient reports longstanding history of migraines since childhood. She reports episode of what she describes as sinus migraines involving facial pain, pressure, congestion the pain is severe to require Tylenol, ibuprofen and fluticasone. She does have a history of allergy but does not take any medications regularly for prevention just when she has the congestion associated with the migraineNo asthmaNo recent allergy testingMental health therapist AIDEE PAK MD [address] [place] [address], [address], [facility] - [facility] 10/15/2024 11:42:11 OBGyn Episode No OBEpisode recorded.
[2025-02-28 13:41] LABS: MANUAL DIFF FLAG NO
[2025-02-28 13:44] LABS: Hematocrit 40.0 % (37.0-47.0); Hemoglobin 13.2 g/dl (12.0-16.0); Imm Gran Abs Auto 0.05 X10*3/uL (0.00-0.03); Imm Gran Pct Auto 0.6 % (0.0-0.4); Lymphocytes Absolute Auto 2.5 X10*3/uL (1.2-4.9); Mean Corpuscular HGB Conc 33.0 g/dl (31.0-35.0); Mean Corpuscular Hemoglobin 28.5 pg (27.0-33.0); Mean Corpuscular Volume 86.4 fL (80.0-98.0); NRBC Abs Auto 0.000 X10*3/uL (0.0-0.012); NRBC Pct Auto 0.0 /100WBC (0.0-0.2); Platelet Count 408 X10*3/uL (160-400); Red Blood Count 4.63 X10*6/uL (4.20-5.50); White Blood Count 8.9 X10*3/uL (4.8-10.8)
[2025-02-28 14:03] LABS: Cholesterol 266 mg/dL (<200); HDL Cholesterol 57 mg/dL (>40); Triglycerides 146 mg/dL (<150)
== END 2025-02-28 11:34 | disposition home or self-care (01) ==
LOC: HO.HMGCLDS 11:33
PROVIDERS: PCP Nurse Practitioner Family; Visit Provider Nurse Practitioner Family
DX: D75.839 Thrombocytosis, unspecified (principal); E78.5 Hyperlipidemia, unspecified
CPT/HCPCS: 36415; 80061; 85025

== ENCOUNTER 2025-03-03 09:40 | Outpatient (AMB) | payer OTHER, SELFPAY ==
--- NOTE | 2025-03-03 09:36 | A.OFFPC_ITS ---
Intake Visit Reasons: Telehealth 2 mos HLD, thrombocytosis Intake Note: patient here for 2 month Telehealth follow up for HLD and thrombocytosis Diabetes Territory Manager Required: No Is last menstrual period known: No Post menopausal: No Patient : No Allergies No Known Allergies Allergy (Verified 03/03/25 09:37) Tobacco use date assessed: 03/03/25 Dental Screening Dental Screen Date: 03/03/25 Did you have a dental visit in the last 12 months?: Yes Did you have a dental problem in the last 6 months where you did not have access to dental care?: No Was dental information given to patient?: Patient has dentist HPI HPI Comments History of Present Illness Details 34-year-old female presents for a tele alth visit for review of recent lab results. She generally eats healthy. However, she had impulsive/binge eating while on Ozempic which she stop taking a month and a half ago due to adverse reactions of GI symptoms. She ate poorly while at the [employer] last week. She is active but does not exercise. She thinks her father may have history of hyperlipidemia because he has cardiovascular disease and diabetes. She denies acute symptoms at this time. [facility] Medical History No pertinent past medical history Surgical History Status post endovenous radiofrequency ablation (RFA) of saphenous vein (04/01/21) Family History Mother No problems noted. Other Mental health disorder Social History (Updated 12/19/24 @ 16:00 by Nalini Michel MA) Housing: Apartment Alcohol intake: never Patient Tobacco Use Status: Never used Tobacco e-Cigarette/Vaping Use: Never Used Second Hand Smoke Exposure: No Patient : No service: No Current occupational status: employed Current occupation: Therapist Current occupational exposures/hazards: No Cognitive needs: No Hearing needs: No Vision needs: Yes (glasses) Questionnaire Thrive Questionnaire Date Thrive assessed: 09/15/24 BILLIE-7 AMB Questionnaire BILLIE-7 Date BILLIE - 7 assessed: 09/15/24 Source: Developed by Drs. Leonel Miranda, Leah Mcneil, Andrea Stephen and colleagues, with an educational eileen from [email or web address]. Review of Systems Const Details: Denies chills, Denies fatigue, Denies fever(s), Denies headache(s) and Denies weakness Cardiac Denies chest pain, Denies claudication, Denies leg edema, Denies lightheadedness, Denies palpitations, Denies dyspnea, Denies dyspnea on exertion, Denies orthopnea and Denies other (Loss of consciousness) Resp Denies cough, Denies excessive phlegm production, Denies dyspnea, Denies dyspnea on exertion, Denies snoring and Denies wheezing Physical exam (Primary Care) Tobacco/Smoking Status: Tobacco use Status Tobacco use date assessed 03/03/25 03/03/25 09:39 Patient Tobacco Use Status Never used Tobacco 03/03/25 09:39 e-Cigarette/Vaping Use Never Used 03/03/25 09:39 Thrive Assessment: Date of Thrive Assessment Date Thrive assessed 09/15/24 03/03/25 09:39 Telehealth Telehealth Telehealth Platform: Telephone Location of provider rendering services: practice address Location of patient: address on file Patient Identification confirmed using: Name, : Yes Telehealth method: voice only Patient verbally consented to treatment: Yes Patient verbally consented to billing insurance company: Yes Patient informed of any privacy concerns related to visit: Yes Coding Level of Care Code Tele Est Pt Level 3 (47919) Diagnoses Hyperlipidemia E78.5 Thrombocytosis D75.839 Time Spent (min) 15 Assessment & Plan Assessment & Plan (1) Hyperlipidemia: Code(s): E78.5 - Hyperlipidemia, unspecified Category: Medical Plan: She generally eats healthy. However, she had impulsive/binge eating while on Ozempic which she stop taking a month and a half ago due to adverse reactions of GI symptoms. She ate poorly while at the [employer] last week. She is active but does not exercise. She thinks her father may have history of hyperlipidemia because he has cardiovascular disease and diabetes. Recent total cholesterol and LDL levels are elevated, 266 and 180 respectively; previous levels were 288 and 143 respectively. Triglycerides and HDL levels are normal. She wants to continue to make healthy lifestyle changes versus medication treatment at this time. Advised to limit foods high in saturated fat and avoid foods high in trans fat. Routine exercise encouraged. Fast for 10-12 hours, may drink water, and perform lipid panel blood work a few days before next visit. Follow-up for telehealth visit in 2 months. Return sooner with symptoms or concerns. Verbalized understanding and agreed with the plan. (2) Thrombocytosis: Code(s): D75.839 - Thrombocytosis, unspecified Category: Medical Plan: Recent the count is slightly elevated, 408. Will monitor platelet level annually or as needed. Verbalized understanding and agreed with the plan. Orders: Orders Lipid Panel 2 Months E78.5 - Hyperlipidemia, unspecified
--- OUTSIDE RECORDS SUMMARY | 2025-03-03 10:32 | XMS_ITS | Data Portability ---
Author Organization [place] - [facility], Allergy Address [address] [place] [address] Care Team Providers Care Professor Criminal Justice Name Role Phone ABDIRASHID SNELL Primary Care Provider [phone] Assessment No assessment recorded. 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 Results Created Date Observation Date Name Description Value Unit Range Abnormal Flag Note LastModifiedBy Organization Detail LastModifiedTime 01/17/20 25 reyna metry testi ng* No observ ation record ed. [email or web address] Not Available 2024 10:46:52 Result Notes None recorded. Problems Name Problem SNOMED Code Status Onset Date Resolution Date Notes Provider Name and Address Organization Details Recorded Time Migraine without aura, not refractory 287346539 Active 025 AIDEE VILLA MD 100 [facility] [place], [place], [address], [place] - [facility] [place] 5 11:27:50 Allergic rhinitis 82512561 Active AIDEE VILLA MD 100 [facility] [place],[address], [place], [address], [facility] - [facility] [place] 11:27:56 Obesity caused by energy imbalance 213373594 Active AIDEE VILLA MD 100 [facility] [place],[address], [place], [address], [place] - [facility] [place] 11:28:28 Deviated nasal septum 416525780 Active AIDEE VILLA MD 100 [facility],[address], [place], [address], [facility] - [facility] 11:41:44 Perennial allergic rhinitis 782342500 Active LAMBERTO ALLEN 100 [facility],[address], [place], [address], [facility] - [facility] 10:44:37 Problem Notes None recorded. Procedures Surgical History Date Name Laterality Status Provider Name and Address Organization Details Recorded Time 01/17/20 25 Allergy Testing-Full completed LAMBERTO ALLEN 100 [facility],[address], [address], [facility] - [facility] 01/16/2025 11:55:23 10/16/19 25 JMSNasal/Sinus Endoscopy completed AIDEE PAK MD 100 [facility],[address], [address], [facility] - [facility] 10/15/2024 11:39:22 adenoid excision completed Nighat Sanders [facility] 10/15/2024 11:13:36 nasal polypectomy completed Nighat Sanders [place] - [facility] 10/15/2024 11:13:49 Imaging Results None recorded. [...] Updated DateTime 10/15/2024 167.64 cm 33.9 kg/m2 28825.4 g 140/82 mm[Hg] Nighat Sanders [place] - [facility] 10/15/2024 11:31:25 Date Recorded Body height Body mass index (BMI) Body weight Oxygen saturation Oxygen saturation in Arterial blood by Pulse oximetry Provider Name and Address Organization Details Last Updated DateTime 01/16/2025 167.64 cm 37.1 kg/m2 746770. 25 g 96 % 96 % LAMBERTO ALLEN [address], [address], [place] - [facility] 10:39:21 Social History None recorded. Functional [...] ICD10 Code Diagnosis IMO Codes Diagnosis Note [id number] AIDEE AHUJA MD [facility] 100 [place] [address] 10/15/2024 10:50:38 10/15/2024 11:47:36 Migraine without aura, not refractory 532795225 G43.009 540584 Suspect underlying migraine headache. Suggest reduction of cheese, chocolate, citrus fruit, cold cuts, nuts, MSG and alcohol. Suggest trial of magnesium oxide 2 to 400 mg daily and riboflavin 400 mg daily. Associatio n of migraine disorders website given, migrainedi [email or web address] g for additional informatio n. She will contact me in a few weeks with an update. Allergic rhinitis 808604 04 J30.9 7144216 Obesity ca used by energy imbalance 884052758 E66.811 E66.09 Z68.33 01895221 Deviated nasal septum 12 4460002 J34.2 778206 [id number] LAMBERTO ALLEN [facility] 100 [facility],[address] [place] [address] 01/16/2025 10:24:25 01/16/2025 11:55:50 Perennial allergic rhinitis 014366715 J30.89 127779 Health Concerns Section Related Observation LastModified by Organization Detai ls LastModified Time None Recorded Concern Status LastModified by Organization Details LastModified Time None Recorded Advance Directives Directive None Recorded Payers Insurance Date Sequence Insurance Name Policy Number Policy Hardy Covered Member ID Hardy Member ID Guarantor Name 02/06/[address] [place] [address] [id number] Pita Hui [id number] Pita Thmary Notes Date Note Type Note [...] allergy testingMental health therapist AIDEE PAK MD [address] [place] [address], [address], [facility] - [facility] 10/15/2024 11:42:11 OBGyn Episode No OBEpisode recorded.
== END 2025-03-03 10:04 | disposition home or self-care (01) ==
LOC: HO.HMCFM 09:40
PROVIDERS: PCP Nurse Practitioner Family; Visit Provider Nurse Practitioner Family
DX: E78.5 Hyperlipidemia, unspecified (principal); D75.839 Thrombocytosis, unspecified